=== PATIENT | male | born 1975 | race Caucasian/White ===

== ENCOUNTER 2017-04-02 10:07 | Emergency (ER) | payer BC ==
[2017-04-02 10:38] VITALS: BP 149/89
--- NOTE | 2017-04-02 11:41 | UC ---
Ear Complaint HPI - HPI Summary HPI Summary: 41 yo male with URI symptoms x 4-5 days no fever no CP or SOB c/o left ear ache - History of Current Complaint Chief Complaint: UCGeneralIllness Stated Complaint: COUGH,EAR COMPLAINT,KING Time Seen by Provider: 04/02/17 11:25 Hx Obtained From: Patient Onset/Duration: Gradual Onset, Lasting Days Severity Initially: Mild Severity Currently: Moderate Pain Intensity: 4 Pain Scale Used: 0-10 Numeric Associated Signs/Symptoms: Positive: Hearing Loss, URI Symptoms - Allergies/Home Medications Allergies/Adverse Reactions: Allergies Allergy/AdvReac Type Severity Reaction Status Date / Time No Known Allergies Allergy Verified 04/02/17 10:38 Home Medications: Home Medications GuaiFENesin DM* [Robitussin DM*] 10 ml PO Q6H PRN 04/02/17 [History Confirmed ] PMH/Surg Hx/FS Hx/Imm Hx Previously Healthy: Yes - Surgical History Surgical History: None - Family History Known Family History: Positive: Hypertension Negative: Cardiac Disease, Diabetes - Social History Alcohol Use: Occasionally Substance Use Type: None Smoking Status (MU): Never Smoked Tobacco Review of Systems Constitutional: Negative Skin: Negative Eyes: Negative ENT: Ear Ache Respiratory: Cough Cardiovascular: Negative Gastrointestinal: Negative Genitourinary: Negative Motor: Negative Neurovascular: Negative Musculoskeletal: Negative Neurological: Negative Psychological: Negative All Other Systems Reviewed And Are Negative: Yes Physical Exam Triage Information Reviewed: Yes Appearance: Well-Appearing, No Pain Distress, Well-Nourished Vital Signs: Initial Vital Signs Temp 98.7 F 04/02/17 10:35 Pulse 98 04/02/17 10:35 Resp 16 04/02/17 10:35 BP 149/89 04/02/17 10:35 Pulse Ox 94 04/02/17 10:35 Vital Signs Reviewed: Yes Eyes: Positive: Conjunctiva Clear ENT: Positive: Pharynx normal, TM bulging - LEFT, TM dull - LEFT, TM red - LEFT. Negative: Normal ENT inspection, Hearing grossly normal Neck: Positive: Supple, Nontender Respiratory: Positive: Lungs clear, Normal breath sounds, No respiratory distress, No accessory muscle use Cardiovascular: Positive: RRR, No Murmur Musculoskeletal: Positive: ROM Intact, No Edema Neurological: Positive: Alert Psychological Exam: Normal Skin Exam: Normal Ear Complaint Course/Dx - Course Course Of Treatment: advised for need to find PMD to follow BP and for routine health care maintenance - Differential Dx/Diagnosis Provider Diagnoses: right otitis media. URI. elevated BP Discharge - Discharge Plan Condition: Stable Disposition: HOME Prescriptions: Amoxicillin (*) [Amoxicillin 875 MG (*)] 875 mg PO BID #20 tab Patient Education Materials: Otitis Media (ED) Referrals: [facility] [place] [facility] [Outside] - If Needed (call if you need help finding a sleeve separator ) No Primary Care Phys,NOPCP [Primary Care Provider] - Additional Instructions: You need to find a local MD your BP was higher than we like to see
== END 2017-04-02 11:40 | disposition home or self-care (01) ==
LOC: UCCORT 10:07
DX: H66.91 Otitis media, unspecified, right ear (principal); J06.9 Acute upper respiratory infection, unspecified; R03.0 Elevated blood-pressure reading, without diagnosis of hypertension
CPT/HCPCS: 99212; G0463